=== PATIENT | male | born 1970 ===

== ENCOUNTER 2016-10-10 08:13 | Day surgery (SDC) | payer OTHER ==
[2016-10-10 09:02] VITALS: BMI 32.5
[2016-10-10] MEDS ORDERED: Midazolam 2 MG/2 ML VIAL ONE ×2 (10:29→10:33)
[2016-10-10] MEDS ORDERED: Propofol 10 mg/ml Inj (20 ML) ONE (10:29)
[2016-10-10] MEDS ORDERED: Lactated Ringer's 500 ML IV ONE ×2 (10:30)
[2016-10-10 11:13] VITALS: TEMP 99.1
[2016-10-10 11:46] VITALS: PULSE 60; O2SAT 100
[2016-10-10 11:48] VITALS: BP 115/76; RESP 18
== END 2016-10-10 11:47 | disposition home or self-care (01) ==
LOC: C.ENDO 08:13
PROVIDERS: ATTEND Internal Medicine Gastroenterology
DX: I85.00 Esophageal varices without bleeding (principal); K76.6 Portal hypertension; K31.89 Other diseases of stomach and duodenum; K44.9 Diaphragmatic hernia without obstruction or gangrene
CPT/HCPCS: 43239; 88305; J2250; J2704; J7120

== ENCOUNTER 2017-11-06 17:05 | Emergency (ER) | payer SELFPAY ==
[2017-11-06 17:05] VITALS: BMI 32.8
[2017-11-06 22:09] LABS: BASO % 0.6 % (0.0-2.0); EOS % 0.8 % (0.0-4.0); HEMOGLOBIN 14.9 g/dL (12.0-18.0); LYMPH # 0.9 K/uL (1.0-4.3); LYMPH % 15.8 % (20.0-40.0); MEAN CELL VOLUME 92.3 fL (80.0-94.0); MEAN CORPUSCULAR HEMOGLOBIN 32.4 pg (27.0-31.0); MEAN CORPUSCULAR HGB CONC 35.1 g/dL (33.0-37.0); MEAN PLATELET VOLUME 8.1 fL (7.2-11.7); MONO # 0.4 K/uL (0.0-0.8); MONO % 6.8 % (0.0-10.0); NEUT # 4.3 K/uL (1.8-7.0); NRBC % 0.1 % (0.0-2.0); RBC 4.59 Mil/uL (4.40-5.90); RED CELL DISTRIBUTION WIDTH 13.6 % (11.5-14.5); WHITE BLOOD COUNT 5.6 K/uL (4.8-10.8)
[2017-11-06 22:24] LABS: ALB/GLOB RATIO 1.2 (1.0-2.1); ALBUMIN 3.8 g/dL (3.5-5.0); ALT/SGPT 51 U/L (21-72); AST/SGOT 42 U/L (17-59); BLOOD UREA NITROGEN 21 mg/dL (9-20); CALCIUM 9.4 mg/dl (8.6-10.4); GFR AFRICAN-AMERICAN > 60; GFR NON-AFRICAN AMERICAN > 60; LIPASE 91 U/L (23-300)
--- NOTE | 2017-11-06 22:44 | C.PDOC ---
History Of Present Illness 47 y/o male with a history of liver sclerosis, alcohol abuse, and BPH presents to the ED s/p colonoscopy with abdominal pain. Patient states the pain has been getting progressively worse since procedure and became more sever feeling at 5 pm prompting his visit to the ED. He states he hasn't had a bowel movement since procedure. PMD:None provided Time Seen by Provider: 11/06/17 21:28 Chief Complaint (Nursing): Abdominal Pain History Per: Patient History/Exam Limitations: no limitations Onset/Duration Of Symptoms: Hrs Current Symptoms Are (Timing): Still Present Quality Of Discomfort: "Pain" Last Bowel Movement: Other (before colonoscopy) Recent travel outside of the [place]: No Past Medical History Vital Signs: Last Vital Signs Temp 98.3 F 11/06/17 17:40 Pulse 60 11/06/17 17:40 Resp 14 11/06/17 17:40 BP 130/83 11/06/17 17:40 Pulse Ox 100 11/06/17 22:44 - Medical History PMH: Gall Bladder Disease (CHOLECYSTITIS), HTN Denies: Alzheimer's Disease, Colonic Polyps, Fractures, Chronic Kidney Disease, TIA Other PMH: liver sclerosis, EtOH abuse, BPH Surgical History: Appendectomy, Cholecystectomy, Endoscopy Family History: States: No Known Family Hx - Social History Hx Alcohol Use: Yes Hx Substance Use: No - Immunization History Hx Influenza Vaccination: No Hx Pneumococcal Vaccination: No Review Of Systems Gastrointestinal: Positive for: Abdominal Pain Physical Exam - Physical Exam Appears: Well, No Acute Distress Skin: Normal Color, Warm, Dry Head: Atraumatic, Normacephalic Eye(s): bilateral: Normal Inspection, PERRL, EOMI Nose: Normal Throat: Normal Neck: Normal Cardiovascular: Rhythm Regular, No Murmur Respiratory: Normal Breath Sounds, No Decreased Breath Sounds Gastrointestinal/Abdominal: Normal Exam Back: Normal Inspection, No CVA Tenderness, No Vertebral Tenderness Extremity: Normal ROM Neurological/Psych: Oriented x3 ED Course And Treatment - Laboratory Results Result Diagrams: 11/06/17 22:04 11/06/17 22:04 O2 Sat by Pulse Oximetry: 100 (RA) Pulse Ox Interpretation: Normal Medical Decision Making Medical Decision Making: Time: 17:40 Impression: Belly pain Initial Plan: * CT of the abdomen * Urinalysis Patient has an MRI of the abdomen scheduled for 11/25 and 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 Scribe Attestation: Documented by Ana Daley acting as a scribe Darius Gonzalez MD. MD Miner Attestation: All medical record entries made by the Scribe were at my direction and personally dictated by me. I have reviewed the chart and agree that the record accurately reflects my personal performance of the history, physical exam, medical decision making, and the department course for this patient. I have also personally directed, reviewed, and agree with the discharge instructions and disposition. Disposition Counseled Patient/Family Regarding: Diagnosis, Need For Followup - Disposition Disposition: HOME/ ROUTINE Disposition Time: 22:43 Condition: GOOD Additional Instructions: return to ed if symptoms worsen Instructions: Acute Abdomen (Belly Pain), Nausea and Vomiting, Adult Forms: [employer] (German) - Clinical Impression Clinical Impression: Abdominal pain, Abdominal discomfort, Abdominal bloating, Nausea, Vomiting
[2017-11-06 23:20] VITALS: BP 127/84; PULSE 89; RESP 16; TEMP 97.8; O2SAT 96
--- NOTE | 2017-11-07 08:27 | RAD ---
HISTORY: POST COLONOSCOPY, PAIN COMPARISON: CT abdomen pelvis 09/09/2016 FINDINGS: BOWEL: Bowel gas pattern is nonspecific. There is scattered air in the small bowel. Air-filled distention of large bowel, from recent colonoscopy. Small amount of stool noted in the right colon. Small BONES: Visualized osseous structures are unremarkable. OTHER FINDINGS: None. IMPRESSION: Nonspecific bowel gas pattern.
== END 2017-11-06 23:18 | disposition home or self-care (01) ==
LOC: C.ER 17:05
DX: R11.2 Nausea with vomiting, unspecified (principal); R14.0 Abdominal distension (gaseous); R10.9 Unspecified abdominal pain; I10 Essential (primary) hypertension

== ENCOUNTER 2018-02-07 08:37 | Emergency (ER) | payer SELFPAY ==
[2018-02-07 08:37] VITALS: BMI 33.7
[2018-02-07 08:47] VITALS: BP 117/74; PULSE 78; RESP 18; TEMP 99; O2SAT 96
--- NOTE | 2018-02-07 09:49 | RAD ---
Date of service: 02/07/2018 PROCEDURE: Right Foot Radiographs. HISTORY: r/o fx COMPARISON: None. FINDINGS: BONES: Hallux valgus deformity. No fracture. JOINTS: Normal. SOFT TISSUES: Normal. OTHER FINDINGS: None. IMPRESSION: Hallux valgus. No acute fracture.
--- NOTE | 2018-02-07 09:51 | RAD ---
Date of service: 02/07/2018 PROCEDURE: Right Ankle Radiographs. HISTORY: r/o fx COMPARISON: None FINDINGS: BONES: Normal. No fracture. JOINTS: Normal. No osteoarthritis. Ankle mortise maintained. Talar dome intact SOFT TISSUES: Minimal lateral soft tissue swelling. OTHER FINDINGS: None. IMPRESSION: No acute fracture. Minimal lateral soft tissue swelling.
--- NOTE | 2018-02-07 10:57 | C.PDOC ---
History Of Present Illness 47 year old male presents to the ED complaining of right ankle pain since yesterday. Patient states that while getting off the bus last night, he twisted and inverted his ankle. He did not fall to the ground. Otherwise patient denies any numbness, weakness, tingling, or knee pain Patient reports having pain when bearing weight on the ankle, and arrives using 1 old crutch to ambulate. Time Seen by Provider: 02/07/18 09:05 Chief Complaint (Nursing): Lower Extremity Problem/Injury History Per: Patient History/Exam Limitations: no limitations Onset/Duration Of Symptoms: Days Current Symptoms Are (Timing): Still Present Past Medical History Reviewed: Historical Data, Nursing Documentation, Vital Signs Vital Signs: Last Vital Signs Temp 99 F 02/07/18 08:44 Pulse 78 02/07/18 08:44 Resp 18 02/07/18 08:44 BP 117/74 02/07/18 08:44 Pulse Ox 96 02/07/18 11:10 - Medical History PMH: Gall Bladder Disease (CHOLECYSTITIS), HTN Denies: Alzheimer's Disease, Colonic Polyps, Fractures, Chronic Kidney Disease, TIA Surgical History: Appendectomy, Cholecystectomy, Endoscopy Family History: States: No Known Family Hx - Social History Hx Alcohol Use: Yes Hx Substance Use: No - Immunization History Hx Influenza Vaccination: No Hx Pneumococcal Vaccination: No Review Of Systems Except As Marked, All Systems Reviewed And Found Negative. Constitutional: Negative for: Fever Musculoskeletal: Positive for: Foot Pain (right ankle pain) Skin: Negative for: Rash, Lesions Neurological: Negative for: Weakness, Numbness Physical Exam - Physical Exam Appears: Well, Non-toxic, No Acute Distress Skin: Normal Color, Warm, No Rash Head: Atraumatic, Normacephalic Eye(s): bilateral: Normal Inspection Oral Mucosa: Moist Neck: Normal ROM Chest: Symmetrical Extremity: Tenderness (Minimal tenderness to lateral malleolus; No fibular head tenderness at right knee), Capillary Refill (less than 2 sec), No Deformity, Swelling (mild swelling to the lateral aspect of right ankle) Pulses: Left Dorsalis Pedis: Normal, Right Dorsalis Pedis: Normal Neurological/Psych: Oriented x3, Normal Speech ED Course And Treatment O2 Sat by Pulse Oximetry: 96 (RA) Pulse Ox Interpretation: Normal - Other Rad right foot x-ray X-Ray: Read By Radiologist Interpretation: FINDINGS: BONES: Hallux valgus deformity. No fracture. JOINTS: Normal. SOFT TISSUES: Normal. OTHER FINDINGS: None. IMPRESSION: Hallux valgus. No acute fracture. right ankle x-ray X-Ray: Read By Radiologist Interpretation: FINDINGS: BONES: Normal. No fracture. JOINTS: Normal. No osteoarthritis. Ankle mortise maintained. Talar dome intact. SOFT TISSUES: Minimal lateral soft tissue swelling. OTHER FINDINGS: None. IMPRESSION: No acute fracture. Minimal lateral soft tissue swelling. Medical Decision Making Medical Decision Making: Impression: 47 year old with ankle pain Plan: --Right ankle x-ray --Right foot x-ray X-rays negative for acute fracture. Patient will be discharged home. Disposition Counseled Patient/Family Regarding: Studies Performed, Diagnosis, Rx Given - Disposition Referrals: Lizandro Trujillo, [Non-Staff] - Disposition: HOME/ ROUTINE Disposition Time: 10:00 Condition: GOOD Additional Instructions: ANÍBAL DALTON, thank you for letting us take care of you today. Your provider was Angel Luis Riggs DO and you were treated for RT ANKLE PAIN. The emergency medical care you received today was directed at your acute symptoms. If you were prescribed any medication, please fill it and take as directed. It may take several days for your symptoms to resolve. Return to the Emergency Department if your symptoms worsen, do not improve, or if you have any other problems. Please contact your doctor or call one of the physicians/clinics you have been referred to that are listed on the Patient Visit Information form that is included in your discharge packet. Bring any paperwork you were given at discharge with you along with any medications you are taking to your follow up visit. Our treatment cannot replace ongoing medical care by a primary care provider outside of the emergency department. Thank you for allowing the [facility] team to be part of your care today. Follow up with your primary care doctor in 3-4 days for re-evaluation and further management. Prescriptions: Ibuprofen [Motrin] 600 mg PO Q6 PRN #20 tab PRN Reason: Pain, Moderate (4-7) Instructions: Ankle Sprain (DC) Forms: [employer] (Ukrainian) - POA Present On Arrival: None - Clinical Impression Clinical Impression: Ankle sprain - Scribe Statement The provider has reviewed the documentation as recorded by the Kristofer Orellana Provider Attestation: All medical record entries made by the Margaritaibrudy were at my direction and personally dictated by me. I have reviewed the chart and agree that the record accurately reflects my personal performance of the history, physical exam, medical decision making, and the department course for this patient. I have also personally directed, reviewed, and agree with the discharge instructions and disposition.
== END 2018-02-07 10:50 | disposition home or self-care (01) ==
LOC: C.ER 08:37
DX: S93.401A Sprain of unspecified ligament of right ankle, initial encounter (principal); X50.9XXA Other and unspecified overexertion or strenuous movements or postures, initial encounter

== ENCOUNTER 2018-11-20 08:19 | Outpatient (CLI) | payer SELFPAY | END 2018-11-20 08:20 | disposition home or self-care (01) | LOC: C.LAB 08:19 | DX: R80.9 Proteinuria, unspecified (principal) ==